=== PATIENT | female | born 1945 | race Caucasian/White ===

== ENCOUNTER 2016-07-12 23:12 | Observation (INO) | payer MEDICARE, OTHER ==
[~2016-07-12] VITALS: Ht 154.9 cm; Wt 76.5 kg
[2016-07-12] MEDS ORDERED: DIPHENHYDRAMINE 50 MG INJ IV STA (23:55)
[2016-07-12] MEDS ORDERED: ONDANSETRON 4 MG INJ IV STA (23:55)
[2016-07-12] MEDS ORDERED: SOD CHLORIDE 0.9% 1,000 ML IV STA (23:55)
[2016-07-13] VITALS (9 sets, daily range): BP systolic 63–142; BP diastolic 57–69; PULSE 68–82; RESP 16–18; Ht 154.9 cm; Wt 76.5 kg
[2016-07-13] MEDS ORDERED: MECLIZINE 12.5 MG TAB PO ONE
[2016-07-13 00:24] LABS: CHLORIDE 101 mmol/L (97-110); POTASSIUM 3.9 mmol/L (3.5-5.1); SODIUM 140 mmol/L (135-144)
[2016-07-13 00:27] LABS: ANION GAP 16 (8-16); CARBON DIOXIDE 27 mmol/L (21-31); CREATININE 0.45 mg/dl (0.44-1.00)
[2016-07-13 00:28] LABS: BLOOD UREA NITROGEN 15 mg/dl (7-20); CALCIUM 9.2 mg/dl (8.4-10.2); GLUCOSE 149 mg/dl (70-220)
[2016-07-13 00:29] LABS: BASOPHILS % 0.4 % (0.0-2.0); EOSINOPHILS # 0.1 10^3/ul (0.0-0.5); HEMOGLOBIN 13.2 g/dl (12.0-16.0); LYMPHOCYTES # 3.7 10^3/ul (0.8-2.9); LYMPHOCYTES % 41.3 % (15.0-51.0); MEAN CORPUSCULAR HEMOGLOBIN 29.7 pg (29.0-33.0); MEAN CORPUSCULAR HGB CONC 33.8 g/dl (32.0-37.0); MEAN CORPUSCULAR VOLUME 87.7 fl (82.0-101.0); MEAN PLATELET VOLUME 10.2 fl (7.4-10.4); MONOCYTE # 0.4 10^3/ul (0.3-0.9); MONOCYTES % 4.8 % (0.0-11.0); NEUTROPHIL # 4.8 10^3/ul (1.6-7.5); NEUTROPHILS % 52.5 % (39.0-77.0); PLATELET COUNT 176 10^3/UL (140-440); RED BLOOD COUNT 4.45 10^6/ul (4.20-5.40); RED CELL DISTRIBUTION WIDTH 13.1 % (11.5-14.5); UNCORRECTED WBC 9.1 10^3/ul (4.8-10.8); WHITE BLOOD COUNT 9.1 10^3/ul (4.8-10.8)
[2016-07-13 00:31] LABS: INR 1.02; PARTIAL THROMBOPLASTIN TIME 25.2 Sec (25.0-35.0); PROTIME 13.4 Sec (12.2-14.2)
[2016-07-13 00:33] LABS: CONDITION 1
[2016-07-13 00:48] LABS: TROPONIN-I < 0.012 ng/ml (0.00-0.12)
--- NOTE | 2016-07-13 01:04 | RADRPT ---
PROCEDURE: XR Chest. CLINICAL INDICATION: Pain. TECHNIQUE: Single frontal chest x-ray. COMPARISON: None. FINDINGS: Heart is mildly enlarged.. Pulmonary vessels are top normal caliber.. No focal infiltrate is seen. There is no pleural effusion. There is no pneumothorax. There are degenerative changes of the tho racic spine.. IMPRESSION: Cardiomegaly. Pulmonary vessels top normal in caliber. RPTAT: HMVK .Lee Campbell MD, MD Date Time Electronically viewed and signed by .Lee Campbell MD, on 07/13/2016 01:04 .K/
--- NOTE | 2016-07-13 01:06 | RADRPT ---
PROCEDURE: CT Brain without contrast. CLINICAL INDICATION: Headache. TECHNIQUE: A CT of the brain was performed on a multislice detector CT scanner utilizing axial sec tions from the skull base through the vertex without contrast. Images were reviewed on a high-resolu [email or web address] PACS workstation. Exam CTDlvol = 45 mGy and DLP = 720 mGy-cm. COMPARISON: None available FINDINGS: There is age appropriate central and peripheral atrophy. There is no midline shift. There is a mod erate degree of supratentorial periventricular and subcortical white matter hypodensities. There is no definite acute stroke. There is no mass lesion. There is no intracranial hemorrhage or abnorma l extra-axial fluid collection. Visualized paranasal sinuses are clear. IMPRESSION: 1. No acute intracranial abnormality. 2. Nonspecific white matter changes most commonly seen with microvascular ischemic disease. RPTAT: HMVK .Lee Campbell MD, Date Time Electronically viewed and signed by .Lee Campbell MD, on 07/13/2016 01:06 .K/
--- NOTE | 2016-07-13 02:53 | HP ---
Date/Time of Note Date/Time of Note DATE: 07/13/16 TIME: 02:48 Assessment/Plan VTE Prophylaxis VTE Prophylaxis Intervention: SCD's Lines/Catheters IV [facility] Peripheral IV Assessment/Plan Assessment/Plan 70 yo female with a past medical history of essential hypertension, who presents with sudden onset of ataxic gait. 1. Ataxia - CVA vs other - will admit the patient to telemetry, consult neurology, PT eval, fall precautions, check MRI brain, ECHO, carotid duplex, neurovascular checks, if warranted LP should check for NPH 2. Essential hypertension - unknown home medication, will give hydralazine prn for sbp > 160 3. Vertigo - continue with antivert 25 mg po q8h 4. GI ppx - pepcid 5. DVT ppx - scds as per clinical course. this history and physical took greater then 45 minutes to complete HPI/ROS Admit Date/Time Admit Date/Time 07/13/2016, 2:48 am Hx of Present Illness 70 yo female with a past medical history of essential hypertension, who presents with sudden onset of ataxic gait. All this information was gathered from the chart and ER physician, 2/2 to having a language barrier. No slurred speech, or facial droop, or paresis. She complains of dizziness and headaches. She denies any chest pain, shortness of breath, loss of consciousness, fevers/ chills, urinary/bowel irregularities, or other constitutional symptoms. Denies any recent trauma or falls. ED course: IVF, CT brain completed - see report, Meclizine ROS 14 point review of systems completed, please refer to HPI for any positive findings PMH/Family/Social Past Medical History Medical History: hypertension Past Surgical History Past Surgical Hx: no surgical history Family History Significant Family History: no pertinent family hx Social History Alcohol Use: none Smoking Status: Current every day smoker Drug Use: none Exam/Review of Systems Vital Signs Vitals Vital Signs Date Time Temp Pulse Resp B/P Pulse Ox O2 Delivery O2 Flow Rate FiO2 07/13/16 01:00 94 20 145/73 98 Room Air 07/12/16 23:24 97.8 Exam Exam Gen Medardo: mild distress 2/2 to dizziness, AAOx4 HEENT: NC/AT, PERRLA, EOMI, no pharyngeal erythema, no tonsillar exudates, no lymphadenopathy, no JVD, no carotid bruits NECK: supple, no thyromegaly THORAX: symmetrical, no obvious deformities CV: S1S2, RRR, no M/G/R Lungs: CTAB no W/C/R/R Abd: soft, NT/ND, +BS, no rebound, no guarding, neg HSM EXT: no edema, no ecchymosis, no clubbing, FROM Neuro: CN II-XII grossly intact, no focal deficits Psych: good mentation, alert and oriented, good mood and affect Skin: C/D/I Labs Result Diagram: 07/12/16 2345 07/12/16 2345 Procedures Procedures CXR IMPRESSION: Cardiomegaly. Pulmonary vessels top normal in caliber. CT brain IMPRESSION: 1. No acute intracranial abnormality. 2. Nonspecific white matter changes most commonly seen with microvascular ischemic disease. GIL COOLEY MD Jul 13, 2016 02:53
[2016-07-13] MEDS ORDERED: ONDANSETRON 4 MG INJ IV PRN (03:00)
[2016-07-13] MEDS ORDERED: morphine 2 MG INJ IV PRN (03:00)
[2016-07-13] MEDS ORDERED: hydrALAzine 20 MG INJ IV PRN (03:00)
[2016-07-13] MEDS ORDERED: NITROGLYCERIN (SL) 0.4 MG TAB SL PRN (03:00)
[2016-07-13] MEDS ORDERED: ACETAMINOPHEN 325 MG TAB PO PRN (03:00)
[2016-07-13] MEDS ORDERED: NACL 0.9% 3 ML SYG IV SCH (03:00)
[2016-07-13] MEDS ORDERED: LORAZEPAM 2 MG INJ IV PRN (03:00)
[2016-07-13] MEDS ORDERED: MECLIZINE 12.5 MG TAB PO PRN (03:00)
[2016-07-13] MEDS ORDERED: DOCUSATE SODIUM 100 MG CAP PO PRN (03:00)
[2016-07-13] MEDS: SOD CHLORIDE 0.9% 1,000 ML IV SCH ×2 (03:33→16:24)
[2016-07-13 03:59] LABS: CREATINE KINASE 51 IU/L (23-200)
--- NOTE | 2016-07-13 04:02 | ERA ---
ER Documentation Chief Complaint Date/Time DATE: 07/13/16 TIME: 04:00 Chief Complaint nausea, vomiting, and dizziness HPI This is a very pleasant 62-year-old female who complains of difficulty ambulating, dizziness, ataxia for the past 24 hours. Getting progressively worse. Denies chest pain or any focal neurologic complaints. Denies any head trauma recent or remote. ROS All systems reviewed and are negative except as per history of present illness. Allergies Allergies: Coded Allergies: No Known Allergy (Unverified , 07/12/16) PMhx/Soc History of Surgery: Yes ("neck surgery") Anesthesia Reaction: No Hx Neurological Disorder: No Hx Respiratory Disorders: No Hx Cardiac Disorders: Yes (HTN) Hx Psychiatric Problems: No Hx Miscellaneous Medical Probl: Yes (DM2) Hx Alcohol Use: No Hx Substance Use: No Hx Tobacco Use: Yes (5-6 cigarettes/ day) Smoking Status: Current every day smoker Physical Exam Vitals Vital Signs Date Time Temp Pulse Resp B/P Pulse Ox O2 Delivery O2 Flow Rate FiO2 07/13/16 03:30 74 16 106/51 96 Room Air 07/13/16 01:00 94 20 145/73 98 Room Air 07/12/16 23:24 97.8 86 17 151/70 96 Physical Exam Const: [] Head: Atraumatic Eyes: Normal Conjunctiva ENT: Normal External Ears, Nose and Mouth. Neck: Full range of motion..~ No meningismus. Resp: Clear to auscultation bilaterally Cardio: Regular rate and rhythm, no murmurs Abd: Soft, non tender, non distended. Normal bowel sounds Skin: No petechiae or rashes Back: No midline or flank tenderness Ext: No cyanosis, or edema Neur: Awake and alert Psych: Normal Mood and Affect Result Diagram: 07/12/16 2345 07/12/16 2345 Results 24 hrs Laboratory Tests Test 07/12/16 23:45 Activated Partial Thromboplast Time 25.2Sec Anion Gap 16 Basophils # 0.010^3/ul Basophils % 0.4% Blood Urea Nitrogen 15mg/dl Calcium Level 9.2mg/dl Carbon Dioxide Level 27mmol/L Chloride Level 101mmol/L Creatinine 0.45mg/dl Eosinophils # 0.110^3/ul Eosinophils % 1.0% Glucose Level 149mg/dl Hematocrit 39.0% Hemoglobin 13.2g/dl INR International Normalized Ratio 1.02 Lymphocytes # 3.710^3/ul Lymphocytes % 41.3% Mean Corpuscular Hemoglobin 29.7pg Mean Corpuscular Hemoglobin Concent 33.8g/dl Mean Corpuscular Volume 87.7fl Mean Platelet Volume 10.2fl Monocytes # 0.410^3/ul Monocytes % 4.8% Neutrophils # 4.810^3/ul Neutrophils % 52.5% Nucleated Red Blood Cells # 0.010^3/ul Nucleated Red Blood Cells % 0.0/100WBC Platelet Count 39841^3/UL Potassium Level 3.9mmol/L Prothrombin Time 13.4Sec Prothrombin Time Ratio 1.0 Red Blood Count 4.4510^6/ul Red Cell Distribution Width 13.1% Sodium Level 140mmol/L Troponin I < 0.012ng/ml White Blood Count 9.110^3/ul Current Medications Medications (Trade) Dose Ordered Sig/Kyle Route PRN Reason Start Time Stop Time Status Last Admin Dose Admin Sodium Chloride (NS) 1,000 ml @ 1,000 mls/hr Q1H STAT IV 07/12/16 23:55 07/13/16 00:54 DC 07/13/16 00:09 Ondansetron HCl (Zofran Inj) 4 mg ONCE STAT IV 07/12/16 23:55 07/12/16 23:57 DC 07/13/16 00:10 Diphenhydramine HCl (Benadryl) 25 mg ONCE STAT IV 07/12/16 23:55 07/12/16 23:57 DC 07/13/16 00:10 Meclizine HCl 25 mg 25 mg ONCE ONCE PO 07/13/16 00:00 07/13/16 00:01 DC 07/13/16 00:10 Sodium Chloride (NS) 1,000 ml @ 75 mls/hr [id number] IV 07/13/16 02:44 07/13/16 03:33 IV Flush (NS 3 ml) 3 ml PER PROTOCOL IV 07/13/16 03:00 Lorazepam (Ativan) 0.5 mg Q6H PRN IV ANXIETY 07/13/16 03:00 Ondansetron HCl (Zofran Inj) 4 mg Q6H PRN IV NAUSEA AND/OR VOMITING 07/13/16 03:00 Nitroglycerin (Nitroglycerin (Sl Tab) 0.4 Mg) 1 tab Q5M PRN SL CHEST PAIN 07/13/16 03:00 Acetaminophen (Tylenol Tab) 650 mg Q6H PRN PO PAIN LEVEL 1-3 OR FEVER 07/13/16 03:00 Morphine Sulfate (morphine) 2 mg Q4H PRN IV PAIN LEVEL 7-10 07/13/16 03:00 Docusate Sodium (Colace) 100 mg Q12H PRN PO CONSTIPATION 07/13/16 03:00 Famotidine (Pepcid Iv) 20 mg Q12 IV 07/13/16 09:00 Hydralazine HCl (Apresoline) 10 mg Q6H PRN IV sbp > 160 07/13/16 03:00 Meclizine HCl (Antivert) 12.5 mg TID PRN PO vertigo 07/13/16 03:00 Procedures/MDM EKG: Rate/Rhythm: Normal Sinus Rhythm QRS, ST, T-waves: No changes consistent w/ acute ischemia Impression: No evidence of ischemia or arrhythmia Chest X-ray 1V Interpreted by me: Soft Tissue: No acute abnormalities Bones: No acute abnormalities Mediastinum/Cardiac Silhouette/Lungs: No acute abnormalities CT of the head was negative Medical decision makin-year-old female has ataxia and dizziness. A remote CVA cannot be ruled out completely. She still complains of symptomology despite giving antiemetics and meclizine. At this point patient will need to be admitted. The hospitalist was made aware. Departure Diagnosis: Primary Impression: Ataxia Additional Impression: Dizziness Condition: Serious BRENNAN ANTOINE Jul 13, 2016 04:02
[2016-07-13 04:08] LABS: CK-MB 0.68 ng/ml (0.0-2.4)
[2016-07-13 04:17] LABS: TROPONIN-I < 0.012 ng/ml (0.00-0.12)
[2016-07-13 04:38] LABS: CHOL/HDL RATIO 2.1 RATIO; MAGNESIUM 1.8 mg/dl (1.7-2.5)
[2016-07-13 05:07] LABS: THYROID STIMULATING HORMONE 1.4 MIU/L (0.465-4.680)
--- NOTE | 2016-07-13 08:56 | RADRPT ---
PROCEDURE: Carotid ultrasound CLINICAL INDICATION: Ataxia, carotid bruits TECHNIQUE: Dyson scale, color doppler, spectral doppler ultrasound of the bilateral carotid and sharlene tebral arteries. This study indirectly references the measurement of the distal ICA diameter as the denominator for s tenosis measurement. Validated velocity measurements with angiographic measurements, velocity criter ia are extrapolated from diameter data as defined by: *Cartoid artery stenosis: dyson-scale and Doppl er US diagnosis. Society of Radiologists in Ultrasound Consensus Conference. Radiology 2003; 229: 34 0-346. SRU Consensus Conference Criteria for the Diagnosis of Carotid Artery Stenosis* Degree of Stenosis, % ICA PSV, cm/sec Plaque Estimate, % ICA/CCA PSV Ratio Normal <125 None <2.0 <50 <125 <50 <2.0 50 69 125-230 >50 2.0-4.0 >70 but less than near occlusion >230 >50 <4.0 Near occlusion High, low, or undetectable Visible Variable Total occlusion Undetectable Visible, no detectable lumen Not applicable COMPARISON: No prior studies are available for comparison. FINDINGS: Location Right CCA55 cm/sec Prox ICA 43 cm/sec Mid ICA52 cm/sec Dist ICA78 cm/sec ECA41 cm/sec ICA/CCA1.4 Left CCA70 cm/sec Prox ICA 45 cm/sec Mid ICA69 cm/sec Dist ICA78 cm/sec ECA62 cm/sec ICA/CCA1.1 Plaque burden: No significant plaque is seen. Antegrade flow is seen within the vertebral arteries bilaterally. IMPRESSION: No evidence of a hemodynamically significant carotid stenosis. RPTAT: AADD .Nii Moyer MD, Date Time Electronically viewed and signed by .Nii Moyer MD, MD on 07/13/2016 08:56 .B/
[2016-07-13 09:06] LABS: CREATINE KINASE 30 IU/L (23-200)
[2016-07-13 09:15] LABS: CK-MB 0.42 ng/ml (0.0-2.4)
[2016-07-13 09:20] LABS: TROPONIN-I < 0.012 ng/ml (0.00-0.12)
[2016-07-13] MEDS: FAMOTIDINE 20 MG INJ IV SCH ×2 (11:49→22:04)
[2016-07-13] MEDS ORDERED: INFLUENZA VIRUS VACCINE 0.5 ML SYG IM* ONE (13:00)
--- NOTE | 2016-07-13 15:41 | RADRPT ---
AMENDMENT: 07/13/2016 4:00:10 PM Dago Garces M.D. Also noted is susceptibility artifact at the left periorbital region secondary to metallic foreign b boone. PROCEDURE: MRI Brain without contrast. CLINICAL INDICATION: Vertigo, ataxia, new onset TECHNIQUE: Multiplanar MRI of the brain without contrast was performed on a 3.0 T scanner with the following sequences obtained: T1-weighted, T2-weighted/FLAIR, diffusion weighted (with ADC map), GR E. COMPARISON: CT brain 07/13/2016 FINDINGS: No acute/recent ischemic infarction or intracranial hemorrhage / blood degradation products are iden tified. No extra-axial fluid collection is seen. There is no mass effect. No midline shift is identified. The ventricles and sulci are mildly enlarged, compatible with generalized volume loss. 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 Flow voids are identified in the proximal intracranial arteries and dural sinuses suggesting patency . There is minimal left mastoid air cell opacification. IMPRESSION: 1. No evidence of acute intracranial pathology. 2. Mild generalized volume loss, with mild-moderate chronic small vessel ischemic changes. RPTAT: VV .Dago Garces MD, Date Time Electronically viewed and signed by .Dago Garces MD, MD on 07/13/2016 16:00 .O/
--- NOTE | 2016-07-13 16:25 | RADRPT ---
Echocardiogram Report Patient Name: TIKA MENJIVAR Gender: Female Date: 1945 Study Date: 13-Jul-2016 Health Education Coordinator: Darío Carrillo RDCS Location: Ref. Physician: GIL COOLEY Quality: Good Procedures: Transthoracic echocardiogram with complete 2D, M-Mode, and doppler examination. Indications: Syncope. 2D/M Mode Doppler Measurement Value Normal Ranges Measurement Value Normal Ranges LVIDd 2D 4.4 3.5 - 5.6 cm AV Peak Daniel 1.2 m/sec LVIDs 2D 3.0 2.1 - 4.1 cm AV Peak PG 5.4 mmHg LVPWd 2D 0.8 0.6 - 1.1 cm LVOT Peak Daniel 0.9 m/sec IVSd 2D 0.8 0.6 - 1.1 cm LVOT Peak PG 3.0 mmHg AoR Diam 2D 2.3 2.0 - 3.7 cm MV E Peak Daniel 0.5 m/sec EDV 2D 88.1 cm3 MV A Peak Daniel 0.7 m/sec ESV 2D 26.1 cm3 MV E/A 0.7 LA Dimen 2D 2.7 2.3 - 4.0 cm MV Decel Time 201 msec MV Decel [place] 3 MV E/A 0.7 TR Peak Daniel 1.5 m/sec TR Peak PG 9.5 mmHg Findings Left Ventricle: Normal left ventricular systolic function. Normal left ventricular cavity size. Normal left ventricular wall thickness. Ejection fraction is visually estimated at 6065 %. Tissue Doppler/Mitral Doppler indices are consistent with impaired relaxation (Stage I diastolic dysfunction). Right Ventricle: Normal right ventricular size. Normal right ventricular systolic function. Left Atrium: The left atrium is normal in size. Right Atrium: The right atrium is normal in size. Mitral Valve: Normal appearance and function of the mitral valve with trace physiologic regurgitation. Aortic Valve: Normal appearance of the aortic valve. Mild aortic valve regurgitation. Tricuspid Valve: Normal appearance and function of the tricuspid valve with trace physiologic regurgitation. Normal right ventricular systolic pressure. Pericardium: Normal pericardium with no significant pericardial effusion. Aorta: Normal aortic root. IVC: Normal size and normal respiratory collapse consistent with normal right atrial pressure. Conclusions 1.The left ventricle is normal in size and systolic function. 2.Estimated left ventricular ejection fraction of 60-65%. 3.Mild left ventricular diastolic dysfunction. Electronically Signed By: Dusty Calixto 13-Jul-2016 16:25:00 -0800 Patient Name: TIKA MENJIVAR Study Date: 13-Jul-[id number]
[2016-07-13] MEDS ORDERED: GLUCOSE GEL 15 GRAM TUBE BUCCAL PRN (16:30)
[2016-07-13] MEDS ORDERED: DEXTROSE 50% 50 ML SYRINGE IV PRN ×2 (16:30)
[2016-07-13] MEDS ORDERED: GLUCAGON 1 MG INJ IM PRN (16:30)
[2016-07-13] MEDS ORDERED: GLUCOSE GEL 15 GRAM TUBE PO PRN ×2 (16:30)
[2016-07-13] MEDS ORDERED: MECL-77 PO (17:20)
[2016-07-13] MEDS ORDERED: MTF1000T PO (17:20)
[2016-07-13] MEDS: INSULIN ASPART [NOVOLOG] 3 ML PEN SC SCH ×2 (17:20→22:00)
[2016-07-13] MEDS ORDERED: CRES10 PO (17:20)
[2016-07-13] MEDS ORDERED: CILO50TA PO (18:25)
[2016-07-13] MEDS ORDERED: NIT1OI2 TD (18:25)
[2016-07-13] MEDS ORDERED: ALEN35TA23 PO (18:25)
[2016-07-13] MEDS ORDERED: LYR75 PO (18:25)
[2016-07-13] MEDS ORDERED: CYCL1DRO BOTH EYES (18:25)
[2016-07-13] MEDS ORDERED: KETOROLAC 15 MG INJ IV PRN (20:00)
--- NOTE | 2016-07-13 20:08 | CONS ---
Date/Time of Note Date/Time of Note DATE: 07/13/16 TIME: 19:57 Assessment/Plan Assessment/Plan Chief Complaint/Hosp Course 70 year old female with history of hypertension presents with headaches and dizziness, likely BPPV. MRI Brain w/o contrast: small vessel ischemic changes. Carotid Duplex: no significant stenosis ECHO: wnl HBA1C: 6.6% LDL: 43 Recommendations: -continue meclizine 12.5 mg q6h prn -IVF, reglan prn nausea -Toradol 30 mg q6h prn written for headaches -PT evaluation for gait/balance therapy and vestibular exercises -will follow up again tomorrow Problems: Consultation Date/Type/Reason Admit Date/Time 07/13/2016, 2:48 am Date of Consultation: Jul 13, 2016 Type of Consultation: Neurology Reason for Consultation vertigo Referring Provider: GIL COOLEY MD Hx of Present Illness 70 year old Farsi speaking female with hx of essential hypertension presented with dizziness, severe vertigo, and gait imbalance. Patient is difficult to obtain history from, she denies a prior history of similar symptoms, she described room spinning sensation with headache. She has no history of previous CVA reported. No history of fevers, recent illness, no neck stiffness reported. dizziness headache Past Medical History Medical History: no pertinent history, hypertension Past Surgical History Past Surgical Hx: no surgical history Family History Significant Family History: no pertinent family hx Social History Alcohol Use: none Smoking Status: Light tobacco smoker Drug Use: none Exam/Review of Systems Vital Signs Vitals Vital Signs Date Time Temp Pulse Resp B/P Pulse Ox O2 Delivery O2 Flow Rate FiO2 07/13/16 19:31 98.2 72 16 129/63 95 07/13/16 12:30 Room Air Exam Constitutional: alert, oriented, well developed Psych: nl mood/affect, no complaints Head: atraumatic, normocephalic Eyes: EOMI Cardiovascular: nl pulses, regular rate and rhythm 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, DTR's symmetric, nl mental status, nl speech, nl strength, other (head thrust maneuver does not illict any abnormalities, patient is able to maintain gaze without any corrective eye movements) Results Result Diagram: 07/12/16 3395 07/12/16 2345 Results 24 hrs Laboratory Tests Test 07/12/16 23:45 07/13/16 03:25 07/13/16 08:24 07/13/16 10:52 Activated Partial Thromboplast Time 25.2 Anion Gap 16 Basophils # 0.0 Basophils % 0.4 Blood Urea Nitrogen 15 Calcium Level 9.2 Carbon Dioxide Level 27 Chloride Level 101 Creatinine 0.45 Eosinophils # 0.1 Eosinophils % 1.0 Glucose Level 149 Hematocrit 39.0 Hemoglobin 13.2 INR International Normalized Ratio 1.02 Lymphocytes # 3.7 H Lymphocytes % 41.3 Mean Corpuscular Hemoglobin 29.7 Mean Corpuscular Hemoglobin Concent 33.8 Mean Corpuscular Volume 87.7 Mean Platelet Volume 10.2 Monocytes # 0.4 Monocytes % 4.8 Neutrophils # 4.8 Neutrophils % 52.5 Nucleated Red Blood Cells # 0.0 Nucleated Red Blood Cells % 0.0 Platelet Count 176 Potassium Level 3.9 Prothrombin Time 13.4 Prothrombin Time Ratio 1.0 Red Blood Count 4.45 Red Cell Distribution Width 13.1 Sodium Level 140 Troponin I < 0.012 < 0.012 < 0.012 White Blood Count 9.1 Cholesterol Level 118 Cholesterol/HDL Ratio 2.1 Creatine Kinase 51 30 Creatine Kinase Index 1.3 1.4 Creatinine Kinase MB (Mass) 0.68 0.42 HDL Cholesterol 56 Hemoglobin A1c 6.6 H LDL Cholesterol, Calculated 43 Magnesium Level 1.8 Thyroid Stimulating Hormone (TSH) 1.400 Triglycerides Level 95 Bedside Glucose 112 Test 07/13/16 17:13 Bedside Glucose 154 Medications Medications Current Medications Sodium Chloride (NS) 1,000 ml @ 75 mls/hr [id number] IV Last administered on 07/13t 16:24; Admin Dose 75 MLS/HR; Start 07/13/16 at 02:44 Lorazepam (Ativan) 0.5 mg Q6H PRN IV ANXIETY; Start 07/13/16 at 03:00 Ondansetron HCl (Zofran Inj) 4 mg Q6H PRN IV NAUSEA AND/OR VOMITING; Start at 03:00 Nitroglycerin (Nitroglycerin (Sl Tab) 0.4 Mg) 1 tab Q5M PRN SL CHEST PAIN; Start 07/13/16 at 03:00 Acetaminophen (Tylenol Tab) 650 mg Q6H PRN PO PAIN LEVEL 1-3 OR FEVER; Start at 03:00 Morphine Sulfate (morphine) 2 mg Q4H PRN IV PAIN LEVEL 7-10; Start 07/13/16 at 03:00 Docusate Sodium (Colace) 100 mg Q12H PRN PO CONSTIPATION; Start 07/13/16 at 03: 00 Famotidine (Pepcid Iv) 20 mg Q12 IV Last administered on 07/13/16t 11:49; Admin Dose 20 MG; Start 07/13/16 at 09:00 Hydralazine HCl (Apresoline) 10 mg Q6H PRN IV sbp > 160; Start 07/13/16 at 03: 00 Meclizine HCl (Antivert) 12.5 mg TID PRN PO vertigo; Start 07/13/16 at 03:00 Diagnostic Test (Pha) (Accucheck) 1 ea 02 XX ; Start 07/14/16 at 02:00 Miscellaneous Information 1 ea NOTE XX ; Start 07/13/16 at 16:30 Glucose (Glutose) 15 gm Q15M PRN PO DECREASED GLUCOSE; Start 07/13/16 at 16:30 Glucose (Glutose) 22.5 gm Q15M PRN PO DECREASED GLUCOSE; Start 07/13/16 at 16: 30 Dextrose (D50w Syringe) 25 ml Q15M PRN IV DECREASED GLUCOSE; Start 07/13/16 at 16:30 Dextrose (D50w Syringe) 50 ml Q15M PRN IV DECREASED GLUCOSE; Start 07/13/16 at 16:30 Glucagon (Glucagen) 1 mg Q15M PRN IM DECREASED GLUCOSE; Start 07/13/16 at 16:30 Glucose (Glutose) 15 gm Q15M PRN BUCCAL DECREASED GLUCOSE; Start 07/13/16 at 16 :30 EFFIE TRACY MD Jul 13, 2016 20:08
[2016-07-13] MEDS ORDERED: ALENDRONATE SODIUM 70 MG PO SCH (20:30)
[2016-07-13] MEDS ORDERED: ATORVASTATIN 40 MG TAB PO SCH (21:00)
[2016-07-13] MEDS ORDERED: NITROGLYCERIN 2% 1 GM OINT PKT TD SCH (21:00)
[2016-07-13] MEDS: PREGABALIN 75 MG CAP PO SCH (22:03)
[2016-07-13] MEDS: CYCLOSPORINE 0.05% OPH DROPERETTE BOTH EYES SCH (22:03)
[2016-07-13] MEDS: MECLIZINE 12.5 MG TAB PO SCH (22:03)
[2016-07-13] MEDS: metFORMIN 500 MG TAB PO SCH (22:04)
[2016-07-13] MEDS ORDERED: CILOSTAZOL 100 MG TAB PO SCH (22:59)
[2016-07-14] VITALS (8 sets, daily range): BP systolic 106–123; BP diastolic 52–69; PULSE 64–84; RESP 16–18
[2016-07-14] MEDS ORDERED: ACCUCHECK XX SCH (02:00)
[2016-07-14] MEDS: SOD CHLORIDE 0.9% 1,000 ML IV SCH (05:34)
[2016-07-14 07:21] LABS: BASOPHILS % 0.3 % (0.0-2.0); EOSINOPHILS # 0.1 10^3/ul (0.0-0.5); EOSINOPHILS % 1.9 % (0.0-7.0); HEMATOCRIT 33.9 % (37.0-47.0); HEMOGLOBIN 11.7 g/dl (12.0-16.0); LYMPHOCYTES # 3.1 10^3/ul (0.8-2.9); LYMPHOCYTES % 46.2 % (15.0-51.0); MEAN CORPUSCULAR HEMOGLOBIN 30.4 pg (29.0-33.0); MEAN CORPUSCULAR HGB CONC 34.5 g/dl (32.0-37.0); MEAN CORPUSCULAR VOLUME 88.2 fl (82.0-101.0); MEAN PLATELET VOLUME 9.7 fl (7.4-10.4); MONOCYTE # 0.4 10^3/ul (0.3-0.9); MONOCYTES % 5.2 % (0.0-11.0); NEUTROPHIL # 3.1 10^3/ul (1.6-7.5); NEUTROPHILS % 46.4 % (39.0-77.0); PLATELET COUNT 150 10^3/UL (140-440); RED BLOOD COUNT 3.84 10^6/ul (4.20-5.40); RED CELL DISTRIBUTION WIDTH 13.2 % (11.5-14.5); UNCORRECTED WBC 6.7 10^3/ul (4.8-10.8); WHITE BLOOD COUNT 6.7 10^3/ul (4.8-10.8)
[2016-07-14] MEDS: INSULIN ASPART [NOVOLOG] 3 ML PEN SC SCH ×2 (07:30→12:10)
[2016-07-14 07:32] LABS: CONDITION 1
[2016-07-14 07:55] LABS: CREATININE 0.63 mg/dl (0.44-1.00)
[2016-07-14] MEDS: CYCLOSPORINE 0.05% OPH DROPERETTE BOTH EYES SCH (08:53)
[2016-07-14] MEDS: MECLIZINE 12.5 MG TAB PO SCH ×2 (08:53→11:58)
[2016-07-14] MEDS: FAMOTIDINE 20 MG INJ IV SCH (08:53)
[2016-07-14] MEDS: PREGABALIN 75 MG CAP PO SCH (08:53)
[2016-07-14] MEDS: metFORMIN 500 MG TAB PO SCH (08:53)
--- NOTE | 2016-07-14 12:11 | CONS ---
Date/Time of Note Date/Time of Note DATE: 07/14/16 TIME: 12:10 Consult Date/Type/Reason Admit Date/Time Jul 13, 2016 at 02:17 Initial Consult Date 07/13/16 Type of Consultation: Neurology Reason for Consultation evaluation for vertigo Ordering Provider: GIL COOLEY MD Subjective lying in bed, complains of dizziness symptoms improved Objective Vital Signs Date Time Temp Pulse Resp B/P Pulse Ox O2 Delivery O2 Flow Rate FiO2 07/14/16 11:55 98.1 72 17 112/69 96 07/13/16 12:30 Room Air Intake and Output 07/13/16 07/13/16 07/14/16 15:00 23:00 07:00 Intake Total 1640 ml 1225 ml Balance 1640 ml 1225 ml Constitutional: alert, oriented, well developed Psych: nl mood/affect, no complaints Head: atraumatic, normocephalic Eyes: EOMI Cardiovascular: nl pulses, regular rate and rhythm Neurological: RN TESTING II-XII intact, DTR's symmetric, nl mental status, nl speech, nl strength, other (head thrust maneuver does not illict any abnormalities, patient is able to maintain gaze without any corrective eye movements) Results/Medications Result Diagram: 07/14/16 0600 07/14/16 0600 Results 24 hrs Laboratory Tests Test 07/13/16 17:13 07/13/16 22:01 07/14/16 06:00 07/14/16 07:29 Bedside Glucose 154 91 102 Anion Gap 11 Basophils # 0.0 Basophils % 0.3 Blood Urea Nitrogen 14 Calcium Level 8.0 L Carbon Dioxide Level 30 Chloride Level 106 Creatinine 0.63 Eosinophils # 0.1 Eosinophils % 1.9 Glucose Level 97 # Hematocrit 33.9 L Hemoglobin 11.7 L Lymphocytes # 3.1 H Lymphocytes % 46.2 Mean Corpuscular Hemoglobin 30.4 Mean Corpuscular Hemoglobin Concent 34.5 Mean Corpuscular Volume 88.2 Mean Platelet Volume 9.7 Monocytes # 0.4 Monocytes % 5.2 Neutrophils # 3.1 Neutrophils % 46.4 Nucleated Red Blood Cells # 0.0 Nucleated Red Blood Cells % 0.0 Platelet Count 150 Potassium Level 4.0 Red Blood Count 3.84 L Red Cell Distribution Width 13.2 Sodium Level 143 White Blood Count 6.7 # Test 07/14/16 11:56 Bedside Glucose 161 Medications Current Medications Sodium Chloride (NS) 1,000 ml @ 75 mls/hr [id number] IV Last administered on 07/14 05:34; Admin Dose 75 MLS/HR; Start 07/13/16 at 02:44 Lorazepam (Ativan) 0.5 mg Q6H PRN IV ANXIETY; Start 07/13/16 at 03:00 Ondansetron HCl (Zofran Inj) 4 mg Q6H PRN IV NAUSEA AND/OR VOMITING; Start at 03:00 Nitroglycerin (Nitroglycerin (Sl Tab) 0.4 Mg) 1 tab Q5M PRN SL CHEST PAIN; Start 07/13/16 at 03:00 Acetaminophen (Tylenol Tab) 650 mg Q6H PRN PO PAIN LEVEL 1-3 OR FEVER; Start at 03:00 Morphine Sulfate (morphine) 2 mg Q4H PRN IV PAIN LEVEL 7-10; Start 07/13/16 at 03:00 Docusate Sodium (Colace) 100 mg Q12H PRN PO CONSTIPATION; Start 07/13/16 at 03: 00 Famotidine (Pepcid Iv) 20 mg Q12 IV Last administered on 07/14/16 08:53; Admin Dose 20 MG; Start 07/13/16 at 09:00 Hydralazine HCl (Apresoline) 10 mg Q6H PRN IV sbp > 160; Start 07/13/16 at 03: 00 Meclizine HCl (Antivert) 12.5 mg TID PRN PO vertigo; Start 07/13/16 at 03:00 Diagnostic Test (Pha) (Accucheck) 1 ea 02 XX ; Start 07/14/16 at 02:00 Miscellaneous Information 1 ea NOTE XX ; Start 07/13/16 at 16:30 Glucose (Glutose) 15 gm Q15M PRN PO DECREASED GLUCOSE; Start 07/13/16 at 16:30 Glucose (Glutose) 22.5 gm Q15M PRN PO DECREASED GLUCOSE; Start 07/13/16 at 16: 30 Dextrose (D50w Syringe) 25 ml Q15M PRN IV DECREASED GLUCOSE; Start 07/13/16 at 16:30 Dextrose (D50w Syringe) 50 ml Q15M PRN IV DECREASED GLUCOSE; Start 07/13/16 at 16:30 Glucagon (Glucagen) 1 mg Q15M PRN IM DECREASED GLUCOSE; Start 07/13/16 at 16:30 Glucose (Glutose) 15 gm Q15M PRN BUCCAL DECREASED GLUCOSE; Start 07/13/16 at 16 :30 Ketorolac Tromethamine (Toradol) 15 mg Q6H PRN IV PAIN; Start 07/13/16 at 20:00 ; Stop 07/16/16 at 19:59 Cilostazol (Pletal) 50 mg QHS PO Last administered on 07/13/16 23:30; Admin Dose 50 MG; Start 07/13/16 at 22:59 Cyclosporine (Restasis) 1 drop Q12 BOTH EYES Last administered on 07/14/16 08: 53; Admin Dose 1 DROP; Start 07/13/16 at 21:00 Meclizine HCl (Antivert) 12.5 mg TID PO Last administered on 07/14/16 11:58; Admin Dose 12.5 MG; Start 07/13/16 at 21:30 Nitroglycerin (Nitroglycerin 2% Oint) 1 inch QHS TD Last administered on 22:05; Admin Dose 1 INCH; Start 07/13/16 at 21:00 Pregabalin (Lyrica) 75 mg BID PO Last administered on 07/14/16 08:53; Admin Dose 75 MG; Start 07/13/16 at 21:00 Atorvastatin Calcium (Lipitor) 40 mg QHS PO Last administered on 07/13/16 22: 02; Admin Dose 40 MG; Start 07/13/16 at 21:00 Alendronate Sodium (Fosamax) 70 mg Mo@0730 PO ; Start 07/18/16 at 07:30 Assessment/Plan Chief Complaint/Hosp Course 70 year old female with history of hypertension presents with headaches and dizziness, likely BPPV. MRI Brain w/o contrast: small vessel ischemic changes. Carotid Duplex: no significant stenosis ECHO: wnl HBA1C: 6.6% LDL: 43 Recommendations: -may increase dose of Meclizine to 25 mg q6h -IVF, reglan prn nausea -Toradol 30 mg q6h prn written for headaches -PT evaluation for gait/balance therapy and vestibular exercises -discharge planning today Problems: EFFIE TRACY MD Jul 14, 2016 12:11
--- NOTE | 2016-07-14 12:25 | PDOCDIS ---
Discharge Instructions CONDITION Patient Condition: Good HOME CARE INSTRUCTIONS: Special Diet: CARB CONTROLLED ACTIVITY: Activity Restrictions: No Restrictions FOLLOW UP/APPOINTMENTS Appointments F/U WITH YOUR PCP IN 1-2 WEEKS JOSE CAPUTO Jul 14, 2016 12:25
--- NOTE | 2016-07-14 17:54 | DS ---
DATE OF ADMISSION: 07/13/2016 DATE OF DISCHARGE: 07/14/2016 FINAL DIAGNOSES: 1. Dizziness, likely secondary to benign positional vertigo. Workup including echo, brain MRI, car otid Doppler are negative. Continue meclizine as needed. 2. Diabetes. Continue home medications. 3. Osteoporosis. Continue home medications. HOSPITAL COURSE: The patient is a 70-year-old female with history of [id number] diabetes and hypertension. The patient presents with ataxic gait, dizziness and vertigo. The patient had a workup with chest x-ray, brain CT, MRI, carotid Doppler and echo that showed no significant finding s. CT brain showed nonspecific white matter changes consistent with microvascular ischemic disease which was also noted on the brain MRI which showed mild to moderate chronic small vessel ischemic ch anges. Of note, echo showed an EF at 60% to 65%. Otherwise, no significant findings. The patient stated that she did feel better with decrease dizziness. Her labs, vitals are stable on the day of discharge and ADC vitals, labs, physical exam were stable. GENERAL: No acute complaints. Questions were answered. CONDITION ON DISCHARGE: Stable. DISPOSITION: To home. MEDICATIONS: The patient to continue home medications which include meclizine. No new medications were prescribed. FOLLOWUP: The patient is to follow up with her PCP in 1 to 2 weeks. Greater than 30 minutes was spent coordinating discharge of patient. Dictated By: JOSE CAPUTO MD BS/NTS Conf#: [id number] DID#: [id number]
[2016-07-18] MEDS ORDERED: ALENDRONATE 70 MG TAB PO SCH (07:30)
== END 2016-07-14 17:10 | disposition home or self-care (01) ==
LOC: E/R 23:12 → TEL 07-13 02:17
PROVIDERS: ADMIT Student in an Organized Health Care Education/Training Program; ATTEND Student in an Organized Health Care Education/Training Program
DX: R42 Dizziness and giddiness (principal); E11.9 Type 2 diabetes mellitus without complications; M81.0 Age-related osteoporosis without current pathological fracture; I10 Essential (primary) hypertension; F17.210 Nicotine dependence, cigarettes, uncomplicated
CPT/HCPCS: 36415; 70450; 70551; 71010; 80048; 80061; 82550; 82553; 82962; 83036; 83735; 84443; 84484; 85025; 85610; 85730; 93005; 93306; 93880; 96374; 96375; 99285; G0378; J1200; J1815; J2405; J7030; 90686; 99217